=== PATIENT | male | born 1980 | race Caucasian/White ===

== ENCOUNTER 2017-12-02 20:38 | Emergency (ER) | payer MEDICAID ==
[~2017-12-02] VITALS: Ht 167.6 cm; Wt 73.0 kg
[2017-12-02 20:49] VITALS: Ht 167.6 cm; Wt 73.0 kg
[2017-12-02 22:40] LABS: BASOPHIL % 0.7 % (0-2); PLATELET COUNT 163 x10^3mcL (130-400); RED CELL DISTRIBUTION WIDTH 12.7 % (11.5-14.5)
[2017-12-02 22:46] LABS: microscopic required? NO
[2017-12-02 22:57] LABS: CALCIUM 7.7 mg/dL (8.5-10.1); CARBON DIOXIDE 24.6 mmol/L (21-32); CHLORIDE SERUM 105 mmol/L (98-107); CREATININE SERUM 0.8 mg/dL (0.7-1.3); GFR1 > 60 mL/min; GLUCOSE SERUM 249 mg/dL (74-106); POTASSIUM SERUM 3.7 mmol/L (3.5-5.1); SODIUM SERUM 137 mmol/L (136-145)
[2017-12-02 22:57] LABS: UA SPECIFIC GRAVITY 1.015 (1.005-1.035); urine erythrocyte NEGATIVE (NEGATIVE)
[2017-12-02 22:58] LABS: T3 TOTAL 0.9 ng/mL
[2017-12-02 23:02] LABS: ALKALINE PHOSPHATASE 126 U/L (46-116); ALT/SGPT 110 U/L (16-63); AST/SGOT 51 U/L (15-37); BILIRUBIN TOTAL 0.22 mg/dL (0.20-1.00); CHOLESTEROL 178 mg/dL (<200); TOTAL PROTEIN, SERUM 6.8 g/dL (6.4-8.2)
[2017-12-02 23:05] LABS: ALBUMIN 3.2 g/dL (3.4-5.0); CHOLESTEROL/HDL RATIO 5.6; HDL CHOLESTEROL 32 mg/dL (40-60); TRIGLYCERIDES 271 mg/dL (<150)
[2017-12-02 23:23] LABS: FREE T4 0.97 ng/dL (0.76-1.46); FREE THYROXINE INDEX 2.7 ug/dL (1.4-4.5); T4(THYROXINE) 8.5 ug/dL (4.7-13.3)
[2017-12-02 23:55] VITALS: BP 122/77
== END 2017-12-02 23:55 | disposition home or self-care (01) ==
LOC: ED 20:38
PROVIDERS: Specialist
DX: E11.9 Type 2 diabetes mellitus without complications (principal); R53.1 Weakness; R51 Headache; R42 Dizziness and giddiness; R35.8 Other polyuria; R63.1 Polydipsia; R63.2 Polyphagia
CPT/HCPCS: 36600; 82962; 84439; J1885; J7030; Q0092